=== PATIENT | female | born 1980 | race Caucasian/White ===

== ENCOUNTER → 2016-12-08 | Outpatient (CLI) | payer BC ==
[2010-09-28 16:23] VITALS: BP 130/96
[2016-12-08 12:30] LABS: FREE T4 (FREE THYROXINE) 1.33 ng/dL (0.93-1.71)
== END ==
LOC: MOB LAB 11:08
PROVIDERS: ATTEND Nurse Practitioner Family
DX: E03.9 Hypothyroidism, unspecified (principal)
CPT/HCPCS: 36415; 84439; 84443